=== PATIENT | male | born 1980 | race African-American/Black ===

== ENCOUNTER 2021-02-20 09:53 | Emergency (ER) | payer SELFPAY ==
[~2021-02-20] VITALS: Ht 188 cm; Wt 95.5 kg
--- NOTE | 2021-02-20 10:25 | PHYS DOC ---
Past History Past Medical History: No Pertinent History (LUDIN DUNHAM DO) Smoking: Cigarettes Alcohol Use: Heavy Drug Use: None (LUDIN DUNHAM DO) General Adult EDM: Chief Complaint: DENTAL PROBLEM HPI: HPI: Patient is a 40 year old male who presents with left-sided lower dental pain since last night. Patient rates his pain 10/10 nonradiating. He states he "broke a tooth" about 6 months ago. He has never had any pain similar to this before. Patient denies fever, chills, orbital pain or swelling, chest pain, palpitations, shortness of breath, cough abdominal pain, nausea, vomiting. Patient has no other complaints at this time. (ILAN LEWIS) Review of Systems: Review of Systems: ROS negative except as mentioned in HPI. (ILAN LEWIS) Physical Exam: PE: Constitutional: Well developed, well nourished, no acute distress, non-toxic appearance. HENT: Normocephalic, atraumatic, bilateral external ears normal, oropharynx moist, missing dentition consistent with area of pain, erythematous and swollen surrounding dental cavity, nose normal. Eyes: PERRLA, EOMI, conjunctiva normal, no discharge. Neck: Normal range of motion, no tenderness, no lymphadenopathy, no stridor. Cardiovascular: Heart rate regular rhythm, no murmur. Lungs & Thorax: Bilateral breath sounds clear to auscultation. (ILAN LEWIS) Current Patient Data: Vital Signs: VS - Last 72 Hours, by Label Date Time Temp Pulse Resp B/P (MAP) Pulse Ox O2 Delivery O2 Flow Rate FiO2 02/20/21 10:16 97.6 71 16 170/119 (136) 97 Room Air Repeat BP 176/95 (ILAN LEWIS) Heart Score: C/O Chest Pain: No (ILAN LEWIS) Course & Med Decision Making: Course & Med Decision Making Pertinent Labs and Imaging studies reviewed. (See chart for details) At this time, infection seems limited to missing dentition and surrounding area. No orbital or submandibular involvement. Patient will be provided with first dose of antibiotic here in the department as well as Toradol injection. Patient will be discharged home with clindamycin, tramadol prescriptions as well as a list of dental clinics. Patient understands that he needs to visit a dentist for definitive management. Patient understands and is agreeable to discharge plan. (ILAN LEWIS) Dragon Disclaimer: Dragon Disclaimer: This electronic medical record was generated, in whole or in part, using a voice recognition dictation system. (ILAN LEWIS) Departure Departure: Impression: Primary Impression: Dental abscess Additional Impressions: Poor dentition requiring referral to dentistry Elevated blood pressure reading Disposition: HOME / SELF CARE / HOMELESS Condition: STABLE Referrals: PCP,NO (PCP) Patient Instructions: Dental Abscess, Dental Pain, [id number] Additional Instructions: Please take full course of antibiotics. As discussed, you need to visit the dentist for further evaluation and treatment. Additionally, you may follow with one of the primary care providers listed on the information packet to further evaluate your elevated blood pressure reading here in the department. Please return to the emergency department if your pain worsens or you develop new symptoms, especially chest discomfort. Scripts Tramadol Hcl (TRAMADOL HCL) 50 Mg Tablet 50 MG PO PRN Q6HRS PRN for PAIN, #20 TAB Prov: ILAN LEWIS 02/20/21 Clindamycin Hcl (CLINDAMYCIN HCL) 150 Mg Capsule 3 CAP PO TID for dental abscess for 7 Days, #60 CAP Take 3 capsules by mouth 3 times a day for 7 days. Please take full course of antibiotics unless otherwise instructed by dentist. Prov: ILAN LEWIS 02/20/21 Attending Signature Attending Signature I have reviewed the PA/EVP OPERATIONS's note and plan of care. I was available for consultation as needed during the patient's visit in the emergency department. I agree with the clinical impression, plan, and disposition. (LUDIN DUNHAM DO) ILAN LEWIS Feb 20, 2021 10:25 LUDIN DUNHAM DO Feb 20, 2021 17:02
[2021-02-20] MEDS ORDERED: KETOROLAC 60 MG/2 ML VIAL. IM ONE (10:30)
[2021-02-20] MEDS ORDERED: CLINDAMYCIN HCL 150 MG CAPSULE PO ONE (10:30)
[2021-02-20] MEDS ORDERED: TRAM50TA PO (10:38)
[2021-02-20] MEDS ORDERED: CLIN150C16 PO (10:38)
[2021-02-20 11:29] VITALS: BP 175/96
== END 2021-02-20 11:31 | disposition home or self-care (01) ==
LOC: ER 09:53
DX: K04.7 Periapical abscess without sinus (principal); K02.9 Dental caries, unspecified; R03.0 Elevated blood-pressure reading, without diagnosis of hypertension; F17.210 Nicotine dependence, cigarettes, uncomplicated; F10.20 Alcohol dependence, uncomplicated; Y90.9 Presence of alcohol in blood, level not specified
CPT/HCPCS: 96372; 99283; J1885

== ENCOUNTER 2021-04-04 11:23 | Emergency (ER) | payer SELFPAY ==
[~2021-04-04] VITALS: Ht 188 cm; Wt 93.1 kg
[~2021-04-04 11:23] MED LIST: CLIN150C16 PO; TRAM50TA PO
[2021-04-04 11:32] VITALS: BP 149/89
--- NOTE | 2021-04-04 12:34 | PHYS DOC ---
Past History Past Medical History: No Pertinent History Past Surgical History: Other Additional Past Surgical Histo: R hand ORIF Smoking: Cigarettes Alcohol Use: Heavy (1-2 beers daily) Drug Use: None General Adult EDM: Chief Complaint: ANIMAL BITE HPI: HPI: Patient is a 40 year old male who presents for a cat bite to his left index finger one week ago. The cat is his own and is up to date on vaccinations. He has been using neosporin and hydrogen peroxide on the bite wound without improvement. His left index finger is now swollen and he cannot bend it. He has pain when putting weight on the finger but no pain to touch. He denies any numbness. He also has some scratches on his right hand which he says are healing well. He has been using Tylenol for pain relief and last took Tylenol 800mg at 22:00 last night. He denies any other bite edouard or rashes. He otherwise denies any other symptoms. Patient presented to [facility] for evaluation at which time they instructed patient to present directly to emergency department. Review of Systems: Review of Systems: Constitutional: Denies fever or chills HENT: Denies nasal congestion or sore throat Respiratory: Denies cough or shortness of breath Cardiovascular: Denies chest pain or palpitations Musculoskeletal: Reports pain and swelling to left index finger Integument: Denies rash; reports scratches on back of right hand Neurologic: Denies numbness or focal weakness Complete systems were reviewed and found to be within normal limits, except as documented in this note. Allergies: Allergies: Allergies Coded Allergies Type Severity Reaction Last Updated Verified No Known Drug Allergies 02/20/21 No Physical Exam: PE: Constitutional: Well developed, well nourished, no acute distress, non-toxic appearance HENT: Normocephalic, atraumatic Eyes: Conjunctiva normal, no discharge Neck: Normal range of motion, supple, no LAD Lungs & Thorax: Lungs CTAB, hear sounds RRR, No respiratory distress, equal chest rise and fall Skin: Warm, dry, erythema and swelling to left index finger (as below), abrasions to right hand (as below) Extremities: Tenderness, erythema, and edema to left index finger, purulent material noted beneath skin proximal to nail of left index finger, normal capillary refill, limited ROM of DIP and PIP left index finger, normal ROM MCP l eft index finger, 4cm scratch posterior aspect right hand, 2cm scratch in webbing between first and second digit of right hand Neurologic: Alert and oriented X 3, no focal deficits noted, normal sensation to left index finger Psychologic: Affect normal, judgment normal Current Patient Data: Vital Signs: Vital Signs Date Time Temp Pulse Resp B/P (MAP) Pulse Ox O2 Delivery O2 Flow Rate FiO2 04/04/21 11:32 98.2 97 16 149/89 (109) 98 Room Air EKG: EKG: [] Radiology/Procedures: Radiology/Procedures: [] Heart Score: C/O Chest Pain: N/A Course & Med Decision Making: Course & Med Decision Making Patient presented with erythematous and edematous left index finger from a cat bite one week ago. HPI and physical exam concerning for tenosynovitis of left index finger. Discussed need for IV antibiotics, lab work, and transfer to a facility with a hand surgeon capability. Patient declined care at this facility, stating he would travel to a facility with a hand surgeon available. Patient subsequently eloped from department. Brigid Disclaimer: Brigid Disclaimer: This electronic medical record was generated, in whole or in part, using a voice recognition dictation system. Departure Departure: Impression: Primary Impression: Tenosynovitis of finger Disposition: 07 LEFT AWOL/ELOPED Condition: GUARDED Referrals: PCP,LEXY (PCP) LUDIN DUNHAM DO Apr 04, 2021 12:34
== END 2021-04-04 12:02 | disposition left against medical advice (07) ==
LOC: ER 11:23
DX: S61.251A Open bite of left index finger without damage to nail, initial encounter (principal); M65.9 Synovitis and tenosynovitis, unspecified; F17.210 Nicotine dependence, cigarettes, uncomplicated; W55.01XA Bitten by cat, initial encounter; Y93.89 Activity, other specified; Y92.89 Other specified places as the place of occurrence of the external cause; Y99.8 Other external cause status
CPT/HCPCS: 99281-25